=== PATIENT | male | born 1985 | race Caucasian/White ===

== ENCOUNTER 2017-09-05 22:46 | Emergency (ER) | payer SELFPAY ==
[2017-09-05] MEDS ORDERED: Ondansetron ODT 4 MG TAB ONE (23:08)
[2017-09-05] MEDS ORDERED: Dicyclomine 20 MG TAB ONE (23:08)
== END 2017-09-05 23:13 | disposition home or self-care (01) ==
LOC: BURERS 22:46
DX: K52.9 Noninfective gastroenteritis and colitis, unspecified (principal); K21.9 Gastro-esophageal reflux disease without esophagitis; J45.909 Unspecified asthma, uncomplicated; F17.210 Nicotine dependence, cigarettes, uncomplicated; Z79.899 Other long term (current) drug therapy
CPT/HCPCS: 99283; Q0162